=== PATIENT | male | born 1990 | race Caucasian/White ===

== ENCOUNTER 2017-10-27 21:35 | Emergency (ER) | payer OTHER ==
[2017-10-27 21:36] VITALS: BMI 32.1
[2017-10-27 22:02] VITALS: BP 127/73; PULSE 66; RESP 18; TEMP 97.7; O2SAT 99
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
== END 2017-10-28 00:10 | disposition home or self-care (01) ==
LOC: H.ER 21:35
DX: M62.830 Muscle spasm of back (principal); V43.52XA Car driver injured in collision with other type car in traffic accident, initial encounter; Y92.410 Unspecified street and highway as the place of occurrence of the external cause